=== PATIENT | female | born 1990 | race Asian ===

== ENCOUNTER 2019-05-18 08:22 | Emergency (ER) | payer OTHER ==
[~2019-05-18] VITALS: Ht 165.1 cm; Wt 71.4 kg
[2019-05-18] MEDS ORDERED: PREN-155 PO (08:27)
[2019-05-18 09:10] VITALS: BP 120/87
[2019-05-18] MEDS ORDERED: IBUPROFEN 600 MG TABLET PO ONE (10:00)
[2019-05-18] MEDS ORDERED: ACETAMINOPHEN 500 MG TABLET PO ONE (10:00)
[2019-05-18] MEDS ORDERED: CEPHALEXIN MONOHYDRATE 500 MG CAPSULE PO ONE (10:00)
== END 2019-05-18 10:12 | disposition home or self-care (01) ==
LOC: EMS 08:24
DX: O26.891 Other specified pregnancy related conditions, first trimester (principal); K08.89 Other specified disorders of teeth and supporting structures; L24.3 Irritant contact dermatitis due to cosmetics; Z3A.01 Less than 8 weeks gestation of pregnancy

== ENCOUNTER 2019-08-30 16:41 | Emergency (ER) | payer OTHER ==
[~2019-08-30] VITALS: Ht 170.2 cm; Wt 78.2 kg
[~2019-08-30 16:41] MED LIST: PREN-155 PO
[2019-08-30 19:30] VITALS: BP 118/77
[2019-08-30] MEDS ORDERED: ACETAMINOPHEN 325 MG TABLET PO ONE (19:30)
[2019-08-30] MEDS ORDERED: LIDOCAINE 1% 10 ML VIAL INJ ONE (19:30)
== END 2019-08-30 19:50 | disposition home or self-care (01) ==
LOC: EMS 16:42
DX: O26.892 Other specified pregnancy related conditions, second trimester (principal); K02.9 Dental caries, unspecified; Z90.89 Acquired absence of other organs; Z3A.20 20 weeks gestation of pregnancy
CPT/HCPCS: 99283; J3490

== ENCOUNTER 2022-11-04 18:35 | Emergency (ER) | payer OTHER ==
[~2022-11-04] VITALS: Ht 165.1 cm; Wt 68.2 kg
[2022-11-04] MEDS ORDERED: HYDR28.35 TP (20:47)
[2022-11-04 21:05] VITALS: BP 124/74
== END 2022-11-04 21:17 | disposition still patient (30) ==
LOC: EMS 18:35
DX: L25.9 Unspecified contact dermatitis, unspecified cause (principal); Z90.49 Acquired absence of other specified parts of digestive tract; Z98.890 Other specified postprocedural states
CPT/HCPCS: 99282; Z7502